=== PATIENT | male | born 1975 | race Caucasian/White ===

== ENCOUNTER 2016-07-20 17:09 | Emergency (ER) | payer SELFPAY | END 2016-07-20 17:30 | disposition home or self-care (01) | LOC: ER 17:09 | DX: M54.16 Radiculopathy, lumbar region (principal) | CPT/HCPCS: 96372; 99284; J1170; J2360; J2930 ==

== ENCOUNTER 2016-09-09 15:35 | Inpatient (IN) | payer SELFPAY ==
--- NOTE | ~2016-09-09 | HP ---
History And Physical [address] [place]. [address] NAME: GIO CANNON : 79 STATUS : ADM IN PAT#: [id number] AGE: 41 ADM/REG DATE : 09/09/16 MR#: [id number] REPORT SERV DATE: 09/10/16 DICTATED BY: DALIA ROBERSON II DATE: 09/10/16 REPORT STATUS : Draft TRANSCRIBED BY: ELICIA DATE: 09/10/16 DATE OF ADMISSION: 09/09/2016 CHIEF COMPLAINT: Severe leg pain with cauda equina syndrome (saddle anesthesias) and urinary hesitation. HPI: A friendly 41-year-old gentleman who came to the ER secondary to 36-hour history of urinary hesitation with saddle anesthesias. He has been on the surgery schedule for early September for a microdiskectomy. His pain has increased as well as the cauda equina type symptoms. PAST MEDICAL HISTORY: Chronic low back pain. SOCIAL HISTORY: He works as a white. He and his collectively have seven children. MEDICATIONS: Pain medications (hydrocodone). ALLERGIES: NO KNOWN DRUG ALLERGIES. REVIEW OF SYSTEMS: He does report again penile numbness. He does not admit to sexual dysfunction. PHYSICAL EXAMINATION: GENERAL: Reveals a gentleman in mild distress. He is tearful. NECK: Supple. CHEST: Reveals no stridor on inspiration or expiration. CARDIOVASCULAR: Regular rate and rhythm when I palpate the radial pulse. ABDOMEN: Soft. BACK: Reveals no scars, deformities, or masses. EXTREMITIES: He has a very positive straight leg raise on the left. He has severe S1 dysesthesias with an absent Achilles reflex. He has 4-/5 gastrocs soleus weakness with 3+/5 perineal weakness. Rectal exam per the ER physician reveals decreased rectal tone. He does have saddle dysesthesias. MRI shows a disk fragment at L5-S1, which I suspect is now larger given his increase in symptoms. He also has some degenerative stenosis at L3-4. IMPRESSION/PLAN: Cauda equina syndrome with severe left lower extremity pain. Plan will be for admission and urgent surgery. ESTEVAN/ELICIA History And Physical [address] [place]. [address] NAME: GIO CANNON : 79 STATUS : ADM IN PAT#: [id number] AGE: 41 ADM/REG DATE : 09/09/16 MR#: [id number] REPORT SERV DATE: 09/10/16 DICTATED BY: DALIA ROBERSON II DATE: 09/10/16 REPORT STATUS : Draft TRANSCRIBED BY: MODL DATE: 09/10/16 Dalia Roberson II, M.D. / [id number] CC: Dalia Roberson II, M.D.
--- NOTE | ~2016-09-09 | OP ---
Record Of Operation [facility] [address] [place]. [address] NAME: GIO CANNON : 79 STATUS : ADM IN PAT#: [id number] AGE: 41 ADM/REG DATE : 09/09/16 MR#: [id number] REPORT SERV DATE: 09/10/16 DICTATED BY: DALIA ALY II DATE: 09/10/16 REPORT STATUS : Draft TRANSCRIBED BY: MODTeagan DATE: 09/10/16 DATE OF PROCEDURE: 09/10/2016 PREOPERATIVE DIAGNOSES: 1. L5-S1 large herniated nucleus pulposus with severe stenosis and cauda equina syndrome. 2. History of L5-S1 degenerative disk disease and chronic low back pain. POSTOPERATIVE DIAGNOSES: 1. L5-S1 large herniated nucleus pulposus with severe stenosis and cauda equina syndrome. 2. History of L5-S1 degenerative disk disease and chronic low back pain. PROCEDURE: 1. L5-S1 laminectomy to include diskectomy. 2. Use of the microscope and stereotactic spinal imaging. SURGEON: Dalia Aly M.D. FLUIDS: 1 L lactated Ringer's. ESTIMATED BLOOD LOSS: 10 mL. DRAINS: No drains. COMPLICATIONS: No complications. FINDINGS: Severe fecal thecal sac compression. No complications. PREOPERATIVE HISTORY: This is a friendly 41-year-old gentleman, who unfortunately began developing cauda equina syndrome. He has been on the schedule for microdiscectomy in early September at [facility]. Unfortunately, his pain increased as well as the onset of symptoms consistent with cauda equina syndrome. He ultimately was admitted last night and scheduled for urgent surgery. I discussed with him and his significant other the risks of continuing to have saddle anesthesia and possibly sexual dysfunction because of the cauda equina syndrome. He admitted that he had left this problem go on too long. I advised that I still thought despite having waited he would likely still have a very nice improvement with regard to his severe radiculopathy. DESCRIPTION OF PROCEDURE: After informed consent was obtained, the patient was brought to the operating room at his request and general anesthesia achieved. He was placed in the prone position and the back was prepped and draped in a sterile fashion. The stereotactic spinal pin was placed into the right iliac crest followed by completion of the intraoperative CT scan. Stereotactic guidance was used throughout the case and was instrumental and the minimally invasive technique. Record Of Operation [facility] [address] [place]. [address] NAME: GIO CANNON : 79 STATUS : ADM IN PAT#: [id number] AGE: 41 ADM/REG DATE : 09/09/16 MR#: [id number] REPORT SERV DATE: 09/10/16 DICTATED BY: DALIA ALY II DATE: 09/10/16 REPORT STATUS : Draft TRANSCRIBED BY: ELICIA DATE: 09/10/16 Next, the minimally invasive incision was performed at L5-S1 to the left. The quadrant retractor was placed followed by use of the microscope. Under microscopic visualization, the spinal laminar junction was taken down and the central canal identified. Ligamentum flavum was removed and the central decompression achieved with respect to removing ligamentum flavum bilaterally. The thecal sac was under severe compression from the anterior disk herniation. The herniation was identified. This was located at the central lateral portion of the canal along the anterior aspect of the dura. The extremely large central fragment was removed. There were several other moderate-sized extruded fragment also removed from the canal. This allowed a significant decompression of the thecal sac. Irrigation was now performed and hemostasis achieved. There were no other fragments identified in the canal or the foramen. The standard closure was performed and the patient extubated and transferred to PACU in stable condition. I discussed with his significant other postoperatively the proceedings of the surgery. We also discussed the fact that we would try to discontinue the Alvarado catheter and hopefully his urinary hesitation would be improved. Otherwise, he will need to keep the Alvarado catheter in longer. ESTEVAN/ELICIA Dalia Aly II, M.D. / [id number] CC: Dalia Aly II, M.D.
[2016-09-09] MEDS ORDERED: NORCO1 TAB PO (16:58)
[2016-09-09] MEDS ORDERED: NEUR800 PO (16:58)
[2016-09-09 17:05] LABS: BASOPHILS 0.2 %; BASOPHILS ABSOLUTE 0.02 10/3/uL (0.0-0.16); EOSINOPHILS 0.4 %; EOSINOPHILS ABSOLUTE 0.04 10/3/uL (0.0-0.53); ER CBC TAT 0 Hrs 03 Mins; HEMOGLOBIN 14.9 g/dL (13.6-17.8); IMMATURE GRANULOCYTES 0.2 %; IMMATURE GRANULOCYTES ABSOLUTE 0.02 10/3/uL (0.0-0.11); LYMPHOCYTES 37.9 %; LYMPHOCYTES ABSOLUTE 3.59 10/3/uL (0.67-4.30); MEAN CORPUS HGB CONC 34.6 g/dL (32.0-36.0); MEAN CORPUSCULAR HEMOGLOB 29.4 pg (26.0-34.0); MEAN PLATELET VOLUME 11.4 fL (9.2-13.0); MONOCYTES 6.2 %; MONOCYTES ABSOLUTE 0.59 10/3/uL (0.21-1.20); NEUTROPHILS 55.1 %; NEUTROPHILS ABSOLUTE 5.22 10/3/uL (2.02-8.40); PLATELET COUNT 190 10/3/uL (150-400); RBC DISTRIBUTION WIDTH 11.8 % (12.0-16.0); RED CELL COUNT 5.07 10/6/uL (4.7-6.1); WHITE BLOOD CELLS 9.5 10/3/uL (4.5-10.5)
[2016-09-09] MEDS ORDERED: ADVIL COLD1 PO (17:06)
[2016-09-09] MEDS ORDERED: PRIN5 PO (17:06)
[2016-09-09 17:07] LABS: HEMATOCRIT 43.1 % (40.0-51.0); MANUAL DIFF NO %
[2016-09-09 17:16] LABS: BUN (BLOOD UREA NITROGEN) 14 MG/DL (6-23); CALCIUM, SERUM 8.8 MG/DL (8.5-10.4); CHLORIDE, SERUM 106 MMOL/L (96-112); CO2 (CARBON DIOXIDE) 27 MMOL/L (24-34); CREATININE 0.86 MG/DL (0.70-1.30); GFR AFRICAN AMERICAN 127 ML/MIN (>=60); GFR NON AFRICAN AMERICAN 109 ML/MIN (>=60); GLUCOSE, SERUM 91 MG/DL (60-99); POTASSIUM, SERUM 3.7 MMOL/L (3.5-5.3); SODIUM, SERUM 143 MMOL/L (135-148)
[2016-09-11] MEDS ORDERED: DSS PO (11:51)
[2016-09-11] MEDS ORDERED: V2 PO (11:52)
[2016-09-11] MEDS ORDERED: MSCONTIN PO (11:53)
[2016-09-11] MEDS ORDERED: PERCOCET 10/3251 TAB PO (11:53)
== END 2016-09-11 13:53 | disposition home or self-care (01) | DRG 30 ==
LOC: ER 15:35 → 1SO 17:52
PROVIDERS: Hospitalist
PROC: 01NB0ZZ Release Lumbar Nerve, Open Approach (ICD-10-PCS; principal; 2016-09-09)
PROC: 0ST40ZZ Resection of Lumbosacral Disc, Open Approach (ICD-10-PCS; 2016-09-09)
DX: G83.4 Cauda equina syndrome (principal); I10 Essential (primary) hypertension; M51.27 Other intervertebral disc displacement, lumbosacral region; Z79.891 Long term (current) use of opiate analgesic
CPT/HCPCS: 36415; 80048; 85025; 86850; 86900; 86901; 88304; 88311; 93005; 96374; 96375; 99285; A9270-GY; J0690; J1030; J1170; J1885; J2250; J2270; J2405; J2710; J3010; J3360; J3370